=== PATIENT | female | born 1985 | race Caucasian/White ===

== ENCOUNTER 2017-08-25 08:11 | Emergency (ER) | payer OTHER ==
[~2017-08-25] VITALS: Ht 165.1 cm; Wt 68.0 kg
[~2017-08-25 08:11] MED LIST: BEN50 PO; FAMO20TA12 PO; [UNRECOGNIZED DRUG - CODE] SC
[2017-08-25 08:14] VITALS: BP 117/67
--- NOTE | 2017-08-25 08:15 | NUR ---
PT AMBULATED TO BED 3.
[2017-08-25] MEDS ORDERED: [UNRECOGNIZED DRUG - OTHER] IV (08:17)
--- NOTE | 2017-08-25 08:59 | NUR ---
PT WALKS IN TO ER WITH , REPORTS RT FLANK PAIN RADIATING TO LEFT LOWER BACK AREA, DENIES ANY NUMBNESS OR TINGLING, CMS-INTACT. REPORTS HX HERDITARY ANGIOEDEMA,, GAVE HERSELF FEROCINE THIS AM -AN IM SHOT, GETS REGULAR PAIN MED INFUSIONS. RESP EVEN AND UNLBAORED, FACIAL GRAIMACING NOTED. PREG-NEG, URINE DIP DONE. DENIES DYSURIA. C/O MILD GASTRIC IRRITATION WITH MILD NAUSEA, NO VOMITTING. DENIES ANY FEVERS/CHILLS. WAIITNG FOR ER MD BARRERA.
--- NOTE | 2017-08-25 09:03 | NUR ---
ER MD BARRERA AT BEDSIDE
[2017-08-25] MEDS ORDERED: KETOROLAC 60 MG/2 ML VIAL IM ONE (09:10)
[2017-08-25] MEDS ORDERED: DEXAMETHASONE 10 MG/ML VIAL IM ONE (09:10)
[2017-08-25 10:29] VITALS: BP 115/64
--- NOTE | 2017-08-25 10:29 | NUR ---
Patient discharged with v/s stable. Written and verbal after care instructions given and explained. Patient alert, oriented and verbalized understanding of instructions. Ambulatory with steady gait. All questions addressed prior to discharge. ID band removed. Patient advised to follow up with PMD. Rx of VOLTAREN XR 100MG given. Patient educated on indication of medication including possible reaction and side effects. Opportunity to ask questions provided and answered.
== END 2017-08-25 10:29 | disposition home or self-care (01) ==
LOC: MED 08:11
DX: J11.1 Influenza due to unidentified influenza virus with other respiratory manifestations (principal); D84.1 Defects in the complement system
CPT/HCPCS: 81002; 81025; 96372; 99284; J1100; J1885

== ENCOUNTER 2019-03-27 09:44 | Emergency (ER) | payer OTHER ==
[~2019-03-27] VITALS: Ht 165.1 cm; Wt 70.0 kg
[~2019-03-27 09:44] MED LIST changes: +[UNRECOGNIZED DRUG - OTHER] IV
[2019-03-27 09:47] VITALS: BP 115/58
--- NOTE | 2019-03-27 10:00 | NUR ---
PT AMB TO BED 12
--- NOTE | 2019-03-27 10:09 | NUR ---
C/O CONSTANT PAIN TO L JAW 8/10 AND SHARP X1 DAY. PT REPORTS HAVING 2 CAVITIES FILLED YESTERDAY, AND WAS GIVEN TYLENOL FOR PAIN BUT IT IS NOT HELPING. SHE STATES THE DENTIST CUT HER TOUNGE TWICE DURING THE PROCEDURE AND THIS IS CONTRIBUTING TO THE PAIN. PT SPEECH IS SLIGHTLY MUFFLED DUE TO L CHEEK SWELLING. PT DENIES ACTIVE BLEEDING, FEVER, N/V. BED IN LOW POSITION, SIDE RAIL UP X1.
[2019-03-27] MEDS ORDERED: cefTRIAXone 1,000 MG in LIDOCAINE MPF 1% - 5 mL VIAL 2.1 ML IM ONE (10:50)
[2019-03-27] MEDS ORDERED: traMADol 50 MG TAB PO ONE (10:50)
[2019-03-27 14:17] VITALS: BP 124/75
--- NOTE | 2019-03-27 14:17 | NUR ---
Patient discharged with v/s stable. Written and verbal after care instructions given and explained. Patient alert, oriented and verbalized understanding of instructions. Ambulatory with to home. All questions addressed prior to discharge. ID band removed. Patient advised to follow up with PMD. Rx of TRAMADOL 50 MG TAB given. Patient educated on indication of medication including possible reaction and side effects. Opportunity to ask questions provided and answered.
== END 2019-03-27 14:17 | disposition home or self-care (01) ==
LOC: MED 09:44
DX: K02.9 Dental caries, unspecified (principal); Z79.899 Other long term (current) drug therapy
CPT/HCPCS: 96372; 99283; J0696; J2001